=== PATIENT | male | born 1945 | race Caucasian/White ===

== ENCOUNTER 2020-06-29 10:23 | Emergency (ER) | payer MEDICAID ==
[~2020-06-29] VITALS: Ht 167.6 cm; Wt 79.4 kg
[2020-06-29 10:23] VITALS: BP_SYST 109
--- NOTE | 2020-06-29 10:23 | NUR ---
BROUGHT IN BY [facility]. PLACED IN HALLWAY BED AND TRIAGED. REPORT GIVEN TO MATTHEW
--- NOTE | 2020-06-29 10:26 | NUR ---
Patient to ER bed HALLWAY BED 2 to gown for evaluation. Side rails up. Report given to MATTHEW AKBAR.
--- NOTE | 2020-06-29 10:40 | NUR ---
ER at bedside examining patient.
[2020-06-29 11:07] LABS: HEMATOCRIT 28.5 % (36-54); HEMOGLOBIN 9.5 g/dL (14.0-18.0); MEAN CORPUSCULAR HEMOGLOBIN 37 pg (27-31); MEAN CORPUSCULAR HGB CONC 34 % (32-36); MEAN CORPUSCULAR VOLUME 109 fL (79.0-98.0); RED BLOOD CELL COUNT(AUTO) 2.61 MIL/uL (4.2-6.2); RED CELL DISTRIBUTION WIDTH 16.5 % (9.0-15.0)
--- NOTE | 2020-06-29 11:30 | NUR ---
Patient transported to radiology via gurney, accompanied by Katlyn dela cruz.
[2020-06-29 11:31] LABS: PLATELET COUNT (AUTO) 48 K/uL (130-430); WHITE BLOOD COUNT (AUTO) 30.1 K/uL (4.8-10.8)
[2020-06-29 11:32] LABS: PROTHROMBIN TIME 10.5 SECS (9.5-12.5)
[2020-06-29 12:09] LABS: ATYPICAL LYMPHOCYTES % 5 % (0-0); BASOPHILS % (MANUAL) 0 % (0-2); EOSINOPHILS % (MANUAL) 0 % (0-7); LYMPHOCYTES % (MANUAL) 91 % (20-46); MONOCYTES % (MANUAL) 0 % (0-11)
[2020-06-29 12:29] LABS: ANION GAP 7 (5-15); CALCIUM 7.9 mg/dL (8.4-11.0); CHLORIDE 100 mmol/L (98-107); CREATININE 2.69 mg/dL (0.55-1.30); GLUCOSE 119 mg/dL (70-99); POTASSIUM 4.9 mmol/L (3.5-5.1); SODIUM SERUM 131 mmol/L (136-145); UREA NITROGEN, BLOOD 64 mg/dL (8-21)
[2020-06-29 12:35] LABS: ALANINE AMINOTRANSFERASE 17 U/L (12-78); ALBUMIN 2.5 g/dL (3.4-4.8); ASPARTATE AMINOTRANSFERASE 28 U/L (10-37); TOTAL BILIRUBIN 0.7 mg/dL (0.0-1.0)
[2020-06-29 14:20] VITALS: BP_SYST 109
--- NOTE | 2020-06-29 14:20 | NUR ---
Patient given written and verbal discharge instructions and verbalizes understanding. ER MD discussed with patient the results and treatment provided. Patient in stable condition. ID arm band removed. NO Rx given. Patient educated on pain management and to follow up with PMD. Pain Scale 0/10 . Opportunity for questions provided and answered. Medication side effect fact sheet provided.
== END 2020-06-29 14:20 | disposition home or self-care (01) ==
LOC: SED 10:23
DX: R18.8 Other ascites (principal); D72.829 Elevated white blood cell count, unspecified; D47.3 Essential (hemorrhagic) thrombocythemia; Z88.6 Allergy status to analgesic agent
CPT/HCPCS: 36415; 49083; 71045; 80053; 84484; 85007; 85027; 85610; 99285; C1729